=== PATIENT | male | born 1990 | race Caucasian/White ===

== ENCOUNTER 2018-08-12 01:40 | Emergency (ER) | payer MEDICAID, OTHER ==
[2018-08-12 02:02] LABS: PLATELET COUNT 267 10^3/uL (150-400)
--- NOTE | 2018-08-12 02:11 | EDPHY ---
H & P Stated Complaint: chest pain and tighness after using cocaine Time Seen by Provider: 08/12/18 01:49 HPI/ROS: HPI The patient presents with chest pain which began about 45 min prior to arrival the pain is heavy and constant with a feeling of tightness throughout his left chest. It is moderate in severity. It is associated with some lightheadedness and mild shortness of breath. The patient use cocaine about 1 hr prior to arrival. He has had chest pain before, however this seems more severe.. REVIEW OF SYSTEMS 10 systems were reviewed and negative with the exception of the elements mentioned in the history of present illness. PMHx: Healthy Soc Hx: Cocaine use, occasional smoker FHx: No family history of CAD PHYSICAL General Appearance: Alert, no distress Eyes: Pupils equal and round no pallor or injection ENT, Mouth: Mucous membranes moist Respiratory: There are no retractions, lungs are clear to auscultation Cardiovascular: Regular rate and rhythm Gastrointestinal: Abdomen is soft and non-tender, no masses, bowel sounds normal Neurological: A&O, moves all extremities Skin: Warm and dry, no rashes Musculoskeletal: Neck is supple non tender Extremities: symmetrical, full range of motion Psychiatric: Patient is oriented X 3, there is no agitation Source: Patient Exam Limitations: No limitations - Personal History Current Tetanus Diphtheria and Acellular Pertussis (TDAP): Yes - Medical/Surgical History Hx Asthma: No Hx Chronic Respiratory Disease: No Hx Diabetes: No Hx Cardiac Disease: No Hx Renal Disease: No Hx Cirrhosis: No Hx Alcoholism: No Hx HIV/AIDS: No Hx Splenectomy or Spleen Trauma: No - Social History Smoking Status: Current every day smoker Constitutional: Initial Vital Signs Temperature (C) 36.4 C 08/12/18 01:43 Heart Rate 103 H 08/12/18 01:43 Respiratory Rate 20 08/12/18 01:43 Blood Pressure 135/96 H 08/12/18 01:43 O2 Sat (%) 95 08/12/18 01:43 O2 Delivery Mode Nasal Cannula O2 (L/minute) 2 Allergies/Adverse Reactions: No Known Allergies Allergy (Unverified 08/12/18 01:43) Home Medications: Medication Instructions Recorded NO HOME MEDS 12/19/09 oxyCODONE/APAP 5/325 [Percocet 5 - 10 mg PO Q4-6PRN PRN #25 tab 06/15/10 5/325] Medical Decision Making - Diagnostics EKG Interpretation: EKG: Complete interpretation has been separately recorded in the [email or web address] archive. Summary impression: Normal sinus rhythm with early repolarization Imaging Results: Chest x-ray one view shows no cardiomegaly, no infiltrate, no pneumothorax, interpreted by me, radiology interpretation is pending. Imaging: I viewed and interpreted images myself Differential Diagnosis: 28-year-old male who presents with 45 min of chest pain which he describes as a heavy sensation which is moderate in severity and in the setting of cocaine use. On exam, he is slightly hypertensive, otherwise vital signs are normal. He appears somewhat anxious. Differential diagnosis includes coronary vaso spasm causing angina, anxiety attack, pleurisy. Labs were checked in the emergency department and were unremarkable as was his EKG and chest x-ray. He was given IV fluids and Ativan and slept for several hours. When he awoke he felt well in his chest pain had completely resolved. I have counseled him on not using cocaine as this is likely caused his chest pain. He seems somewhat receptive. - Data Points Laboratory Results: Laboratory Results 08/12/18 01:48 08/12/18 01:48 08/12/18 08/12/18 08/12/18 01:56 01:48 01:48 WBC 8.07 10^3/uL 10^3/uL (3.80-9.50) RBC 4.86 10^6/uL 10^6/uL (4.40-6.38) Hgb 16.2 g/dL g/dL (13.7-17.5) Hct 44.9 % % (40.0-51.0) MCV 92.4 fL fL (81.5-99.8) MCH 33.3 pg pg (27.9-34.1) MCHC 36.1 g/dL g/dL (32.4-36.7) RDW 12.1 % % (11.5-15.2) Plt Count 267 10^3/uL 10^3/uL (150-400) MPV 9.4 fL fL (8.7-11.7) Neut % (Auto) 64.0 % % (39.3-74.2) Lymph % (Auto) 27.8 % % (15.0-45.0) [place] % (Auto) 6.2 % % (4.5-13.0) Eos % (Auto) 1.1 % % (0.6-7.6) Baso % (Auto) 0.7 % % (0.3-1.7) Nucleat RBC Rel Count 0.0 % % (0.0-0.2) Absolute Neuts (auto) 5.16 10^3/uL 10^3/uL (1.70-6.50) Absolute Lymphs (auto) 2.24 10^3/uL 10^3/uL (1.00-3.00) Absolute Monos (auto) 0.50 10^3/uL 10^3/uL (0.30-0.80) Absolute Eos (auto) 0.09 10^3/uL 10^3/uL (0.03-0.40) Absolute Basos (auto) 0.06 10^3/uL 10^3/uL (0.02-0.10) Absolute Nucleated RBC 0.00 10^3/uL 10^3/uL (0-0.01) Immature Gran % 0.2 % % (0.0-1.1) Immature Gran # 0.02 10^3/uL 10^3/uL (0.00-0.10) Sodium 140 mEq/L mEq/L (135-145) Potassium 4.0 mEq/L mEq/L (3.3-5.0) Chloride 104 mEq/L mEq/L (97-110) Carbon Dioxide 24 mEq/l mEq/l (22-31) Anion Gap 12 mEq/L mEq/L (8-16) BUN 13 mg/dL mg/dL (7-23) Creatinine 1.0 mg/dL mg/dL (0.7-1.3) Estimated GFR > 60 Glucose 91 mg/dL mg/dL (70-100) Calcium 9.6 mg/dL mg/dL (8.5-10.4) POC Troponin I 0.00 ng/mL ng/mL (0.00-0.08) Medications Given: Discontinued Medications Sodium Chloride (Ns) 1,000 mls @ 0 mls/hr IV EDNOW ONE; Wide Open PRN Reason: Protocol Stop: 08/12/18 02:07 Last Admin: 08/12/18 02:36 Dose: 1,000 mls Lorazepam (Ativan Injection) 1 mg IVP EDNOW ONE Stop: 08/12/18 02:07 Last Admin: 08/12/18 02:37 Dose: 1 mg Point of Care Test Results: Chemistry 08/12/18 01:56 POC Troponin I 0.00 ng/mL ng/mL (0.00-0.08) Departure - Departure Disposition: Home, Routine, Self-Care Clinical Impression: Cocaine use Chest pain Qualifiers: Chest pain type: unspecified Qualified Code(s): R07.9 - Chest pain, unspecified Condition: Good Instructions: Chest Pain (ED), Cocaine Abuse (ED) Additional Instructions: Please avoid using cocaine, it is causing her chest pain probably. Return to the emergency department if your worse in any way. Referrals: [facility],. [Clinic] - As per Instructions
[2018-08-12] MEDS: NS 1,000 ML IV ONE (02:36)
[2018-08-12] MEDS: LORazepam 2 MG/ML INJ IVP ONE (02:37)
[2018-08-12 04:28] VITALS: BP 130/83
--- NOTE | 2018-08-12 06:06 | CPEKG ---
Test Reason : OPEN Blood Pressure : / mmHG Vent. Rate : 088 BPM Atrial Rate : 087 BPM P-R Int : 169 ms QRS Dur : 103 ms QT Int : 396 ms P-R-T Axes : 078 104 049 degrees QTc Int : 480 ms Sinus rhythm Probable left atrial enlargement Borderline right axis deviation ST elev, probable normal early repol pattern Borderline prolonged QT interval Confirmed by Maria Isabel Nails ([id number]) on 08/12/2018 6:06:36 AM Referred By: Confirmed By:Maria Isabel Nails
== END 2018-08-12 05:33 | disposition home or self-care (01) ==
DX: R07.9 Chest pain, unspecified (principal); F14.10 Cocaine abuse, uncomplicated
CPT/HCPCS: 84484-PO; 96374; J2060